=== PATIENT | male | born 2000 | race Caucasian/White ===

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

== ENCOUNTER → 2021-07-05 | Outpatient (CLI) | payer BC | LOC: COL.RAD 12:00 | DX: J32.0 Chronic maxillary sinusitis (principal); R41.3 Other amnesia; R26.89 Other abnormalities of gait and mobility ==

== ENCOUNTER → 2023-07-05 | Outpatient (CLI) | payer BC | LOC: COL.RAD 08:15 | DX: M25.851 Other specified joint disorders, right hip (principal) | CPT/HCPCS: A9575; Q9967 ==